=== PATIENT | male | born 1955 | race Caucasian/White ===

== ENCOUNTER → 2023-10-05 08:34 | Outpatient (REF) | payer BC, SELFPAY ==
[2023-10-05 09:24] LABS: % Basophils 0.6 % (0-2); % Eosinophils 2.7 % (0-6); % Immature Granulocytes 0.1 % (0-0.5); % Lymphocytes 23.4 % (20.5-51.1); % Monocytes 10.7 % (1.7-9.3); % Neutrophils 62.5 % (42.2-75.2); Absolute Eosinophils 0.2 10^3/uL (0-0.7); Absolute Lymphocytes 1.7 10^3/uL (1.2-3.4); Absolute Monocytes 0.8 10^3/uL (0.1-0.6); Absolute Neutrophils 4.4 10^3/uL (1.4-6.5); Hematocrit 46.1 % (39.0-52.0); Hemoglobin 15.5 g/dL (13.0-18.0); Mean Corp Hgb Conc. 33.6 g/dL (33.0-37.0); Mean Corpuscular Hgb 28.7 pg (27.0-31.0); Mean Corpuscular Volume 85.4 fL (80.0-94.0); Mean Platelet Volume 11.3 fL (7.4-10.4); Nucleated Red Blood Cells % 0 % (-); Platelet Count 212 10^3/uL (130-400); Red Cell Dist. Width 12.4 % (11.5-14.5); White Blood Cell Count 7.1 10^3/uL (4.8-10.8)
[2023-10-05 11:25] LABS: ALT (SGPT) 33 U/L (0-50); AST (SGOT) 48 U/L (17-59); Albumin 4.6 g/dl (3.5-5.0); Alkaline Phosphatase 80 U/L (38-126); Blood Urea Nitrogen 18 mg/dl (9-20); Calcium 9.6 mg/dl (8.4-10.2); Carbon Dioxide 30 mmol/L (22-30); Chloride 103 mmol/L (98-107); Glucose 96 mg/dl (70-99); HDL Cholesterol 68 mg/dl; LDH 210 U/L (120-246); LDL Cholesterol, Calculated 104 mg/dl; Potassium 4.9 mmol/L (3.5-5.1); Sodium 142 mmol/L (135-145); Total Bilirubin 0.7 mg/dl (0.2-1.3); Total Cholesterol 189 mg/dl (50-199); Total Protein 6.8 g/dl (6.3-8.2); Triglyceride 85 mg/dl (10-149); Very Low Density Lipoprotein 17 mg/dl (0-30); eGFR > 60.00
[2023-10-05 11:44] LABS: PSA, Total - Screen 6.24 ng/ml (0.0-4.0); TSH Reflex To Free T4 1.53 uIU/ml (0.47-4.68)
== END ==
LOC: REG 08:34
PROVIDERS: ATTENDING PHYSICIAN Dermatology; FAMILY PHYSICIAN Internal Medicine; REFERRING PHYSICIAN Physician Assistant Medical
DX: I48.91 Unspecified atrial fibrillation (principal); R07.89 Other chest pain; E78.00 Pure hypercholesterolemia, unspecified; Z12.5 Encounter for screening for malignant neoplasm of prostate; Z85.820 Personal history of malignant melanoma of skin
CPT/HCPCS: 36415; 80053; 80061; 83615; 84443; 85025; 93306; G0103

== ENCOUNTER → 2023-10-13 08:49 | Outpatient (REF) | payer BC, SELFPAY | LOC: RCS 08:49 | PROVIDERS: ATTENDING PHYSICIAN Internal Medicine Cardiovascular Disease; FAMILY PHYSICIAN Internal Medicine | DX: R07.89 Other chest pain (principal) | CPT/HCPCS: 93017; 93350 ==

== ENCOUNTER → 2024-01-05 13:32 | Outpatient (REF) | payer BC, SELFPAY ==
[2024-01-08 03:08] LABS: PSA Total 5.6 ng/mL (0.0-4.0)
== END ==
LOC: REG 13:32
PROVIDERS: ATTENDING PHYSICIAN Internal Medicine
DX: R97.20 Elevated prostate specific antigen [PSA] (principal)
CPT/HCPCS: 36415; 84153; 84154

== ENCOUNTER → 2024-05-22 12:23 | Outpatient (REF) | payer BC, SELFPAY | LOC: MRI 3T 12:23 | PROVIDERS: ATTENDING PHYSICIAN Specialist; FAMILY PHYSICIAN Internal Medicine | DX: R97.20 Elevated prostate specific antigen [PSA] (principal) | CPT/HCPCS: 72197; A9575 ==